=== PATIENT | male | born 1980 | race Caucasian/White ===

== ENCOUNTER 2023-06-29 15:21 | Emergency (ER) | payer OTHER ==
[2023-06-29] MEDS ORDERED: HYDROmorphone 4 MG TABLET PO STA (16:05)
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
[2023-06-29] MEDS: HYDROmorphone 1 MG/ML 1 ML SYRINGE IM STA (16:29)
[2023-06-29] MEDS: HYDROmorphone 2 MG TAB PO STA (16:30)
[2023-06-29 17:14] VITALS: BP 144/88; PULSE 98; RESP 18; TEMP 98.1
== END 2023-06-29 16:42 | disposition home or self-care (01) ==
LOC: EC 15:21
DX: G89.29 Other chronic pain (principal); K02.9 Dental caries, unspecified; K04.7 Periapical abscess without sinus; F17.200 Nicotine dependence, unspecified, uncomplicated; Z88.5 Allergy status to narcotic agent; Z88.0 Allergy status to penicillin; Z91.030 Bee allergy status
CPT/HCPCS: 99282; 96372; J1170

== ENCOUNTER 2023-07-04 14:19 | Emergency (ER) | payer OTHER ==
[2023-07-04 15:04] VITALS: RESP 20; TEMP 98
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
[2023-07-04] MEDS: HYDROmorphone 1 MG/ML 1 ML SYRINGE IM STA (15:30)
[2023-07-04 15:47] VITALS: BP 132/79; PULSE 101
== END 2023-07-04 15:35 | disposition home or self-care (01) ==
LOC: EC 14:19
DX: G89.29 Other chronic pain (principal); K02.9 Dental caries, unspecified; F17.200 Nicotine dependence, unspecified, uncomplicated; Z88.0 Allergy status to penicillin; Z88.5 Allergy status to narcotic agent; Z91.030 Bee allergy status
CPT/HCPCS: 99283; 96372; J1170